=== PATIENT | male | born 1990 | race Caucasian/White ===

== ENCOUNTER 2020-11-08 10:37 | Emergency (ER) | payer SELFPAY ==
[2020-11-08 11:04] VITALS: BP 129/73; PULSE 94; RESP 16; TEMP 37.7; O2SAT 98; BMI 23.6
== END 2020-11-08 18:40 | disposition left against medical advice (07) ==
PROVIDERS: Emergency Provider Emergency Medicine
DX: R10.9 Unspecified abdominal pain (principal); R51.9 Headache, unspecified
CPT/HCPCS: 99282; 99283

== ENCOUNTER 2020-11-08 15:20 | Outpatient (REF) | payer SELFPAY | END 2020-11-08 15:21 | disposition home or self-care (01) | LOC: HO.LAB 15:20 | PROVIDERS: Visit Provider Internal Medicine | DX: Z20.828 Contact with and (suspected) exposure to other viral communicable diseases (principal) | CPT/HCPCS: C9803; U0003 ==

== ENCOUNTER 2021-07-19 12:34 | Emergency (ER) | payer SELFPAY ==
[2021-07-19 12:52] VITALS: BP 119/68; PULSE 90; RESP 18; TEMP 36.6; O2SAT 98; BMI 25.1
--- NOTE | 2021-07-19 13:06 | ED_ITS ---
HPI - Skin/Abscess/Foreign Bdy General Chief complaint: Skin/Abscess/Foreign Body Stated complaint: rash Time Seen by Provider: 07/19/21 13:05 Source: patient and family Mode of arrival: ambulatory Limitations: no limitations History of Present Illness complaint: rash Onset (ago): day(s) (For the past few days) Location: L hand and R hand Severity: mild Quality: constant and pruritic Pain Consistency: constant Relieving factors: none Exacerbating factors: none Context: other (They are currently at a detention and they believe they may have scabies) Associated symptoms: denies other symptoms Treatments prior to arrival: none Related Data Previous Rx's Medication Instructions Recorded permethrin 5 % topical cream 1 appl TOPICAL Q14D #60 g 07/19/21 Allergies Allergy/AdvReac Type Severity Reaction Status Date / Time No Known Allergies Allergy Verified 11/08/20 11:07 Review of Systems Review of Systems: Constitutional : No Fever, No Chills , no body aches, no recent illness Head/Face: No facial swelling, No facial redness ENT/Mouth : No oral/throat swelling, No Hoarseness, No Swallowing Difficulty Eyes: No Eye Pain, No Swelling, No Redness Cardiovascular : No Chest Pain, No SOB, No palpitations Respiratory : No Cough, No Sputum, No Wheezing, No Smoke Exposure, No Dyspnea Gastrointestinal : No Nausea, No Vomiting, No Diarrhea, No abdominal Pain Genitourinary : No Dysuria, No Urinary Frequency, No Hematuria Musculoskeletal : No joint pain, No Myalgias, No Joint Swelling Skin : No Skin Lesions, positive rash Neuro : No Weakness, No Numbness, No Headache, No dizziness, No tingling Psych : No Anxiety/Panic, No Depression Heme/Lymph: No Bruising, No Lymphadenopathy Endocrine : No Polyuria, No Polydipsia Denies changes in lotions or detergents. Denies new medications or any changes in medications. Denies drainage from rash. Denies any recent sick contacts or recent travel. Yes all other systems are reviewed and are negative COUNT INCLUDES [facility] Past Medical History Medical History (Updated 07/19/21 @ 13:10 by VENKAT Montero) No known health problems Social History Social History Advance Directives: No Advance Directives Information Provided: No Physical Exam Vital Signs: Vital Signs: Last Vital Signs Temp 97.9 F 07/19/21 12:52 Pulse 90 07/19/21 12:52 Resp 18 07/19/21 12:52 BP 119/68 07/19/21 12:52 Pulse Ox 98 07/19/21 12:52 Body Mass Index 25.1 vital signs have been reviewed as normal and appeared to be correct. Blood pressure normal. Heart rate normal. Respiration rate normal. Temperature normal. Oxygen saturation normal. Appearance: Alert. Oriented X3. No acute distress. Head: Normal external exam. Normocephalic. Atraumatic. Eyes: PERRLA. EOMI. Conjunctiva and sclera normal. Eyelids normal. ENT: Pharynx normal. Uvula midline. Moist mucous membranes. Neck: Normal inspection. Neck supple. FROM. No adenopathy. No meningeal signs. CVS: Normal heart rate and rhythm. Respiratory: No respiratory distress. Painless inspiration. Back: Full range of motion noted. No rashes/lesion/induration/fluctuance or signs of infection noted. Skin: Skin warm and dry. Normal skin color. Normal skin turgor. To hands patient noted to have pruritic macular papular lesion consistent with scabies. No additional rashes/lesions/lacerations noted. Extremities: Extremities exhibit normal range of motion. Extremities nontender. Neuro: Oriented X 3. No motor deficit. No sensory deficit. Reflexes normal. Normal steady gait. No focal neuro deficits noted. Vascular: + radial pulses/+ 2 distal pedal pulses/+2 dorsalis pedis b/l. Normal cap refill. No cyanosis noted to upper extremity nails and lower extremity toes nails. Course Course Course Narrative: 31-year-old male presenting to the ED with his and 2 kids complaints of rash that started a few days ago that is pruritic in nature they are currently at detention and they believe they may have scabies. On exam the entire family has pure attic macular papular lesions with burrows consistent with scabies. No signs of infection. Will DC home with treatment for scabies and instructions to return if any new or worsening symptoms to follow up with primary care provider. Patient and family at bedside understands agrees this plan. MDM - Skin/Abscess/Foreign Bdy Medical Records Attestation: I reviewed the patient's medical records. Discharge Plan Discharge Clinical Impression: Scabies Patient Disposition: Home, Self-Care Instructions: Scabies (ED) Prescriptions: New permethrin 5 % cream 1 appl topical Q14D Qty: 60 RF: 2 Referrals: ED Physician,Generic [Emergency Provider] - 2 days (your pcp) Print Language: Canadian
== END 2021-07-19 14:06 | disposition home or self-care (01) ==
PROVIDERS: Emergency Provider Emergency Medicine
DX: B86 Scabies (principal)
CPT/HCPCS: 99283

== ENCOUNTER 2022-12-05 09:25 | Emergency (ER) | payer OTHER, SELFPAY ==
[2022-12-05 09:33] VITALS: BP 138/67; PULSE 100; RESP 16; TEMP 36.6; O2SAT 96; BMI 25.1
--- NOTE | 2022-12-05 10:20 | ED.EYEPROB ---
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 Reports pain worse to right eye. Admits was wearing safety glasses however does not wear face shield at all times. reports mild foreign body sensation to right eye w/mild blurry vision. Admits to bilateral tearing. denies vision loss, fever, chills, nausea / vomiting, headache. Denies wearing glasses or contacts MD chief complaint: eye pain, eye redness and vision change Onset (ago): day(s) Related Data Previous Rx's Medication Instructions Recorded permethrin 5 % topical cream 1 appl topical Q14D scabies 2 07/19/21 doses #60 grams erythromycin 5 mg/gram (0.5 %) eye 0.5 inch ophthalmic (eye) TID 7 12/05/22 ointment days #3.5 grams Allergies Allergy/AdvReac Type Severity Reaction Status Date / Time No Known Allergies Allergy Verified 11/08/20 11:07 Review of Systems Review of Systems: Constitutional: No Fever, No Chills, No Fatigue, No Malaise ENT/Mouth: No Ear Pain, No Nasal Congestion, No Sinus Pain, No Hoarseness, No sore throat, No Rhinorrhea, No Swallowing Difficulty Eyes: + Eye Pain, + Swelling, + Redness, + Foreign Body sensation, + Discharge, + Vision Changes Cardiovascular: No Chest Pain, No SOB Respiratory: No Cough, No Sputum, No Dyspnea Gastrointestinal: No Nausea, No Vomiting, No Diarrhea, No Constipation, No Abdominal pain Musculoskeletal: No joint pain, No Myalgias, No Joint Swelling Skin: No Skin Lesions, No rash Neuro: No Weakness, No Loss of Consciousness, No Dizziness, No Headache Yes all other systems are reviewed and are negative Constitutional: Constitutional: Reports as per HPI Eyes: Eyes: Reports photophobia (bilterally) [facility] Past Medical History Attestation statement: The following information was validated with the patient. Medical History No known health problems Social History Social History Advance Directives: No Advance Directives Information Provided: No Physical Exam Vital Signs: Vital Signs: Last Vital Signs Temp 98 F 12/05/22 09:33 Pulse 100 12/05/22 09:33 Resp 16 12/05/22 09:33 BP 138/67 12/05/22 09:33 Pulse Ox 96 12/05/22 09:33 O2 Del Method 12/05/22 09:33 BMI result Body Mass Index 25.1 Const: General: cooperative, healthy appearing and no acute distress Orientation/consciousness: patient oriented x3 Limitations: no limitations HEENT: Head: Yes normal to inspection and Yes atraumatic Ears: hearing grossly normal bilaterally General nose exam: Normal external nose present Face and sinus: Yes normal facial exam Eyes: General: appearance normal, both eyes and all related structures Alignment and Position: alignment normal Periorbital: periorbital findings abnormal bilateral (mild bilateral upper and lower eyelid erythema and puffiness) no crepitus Conjunctivae: conjunctival abnormal bilateral conjunctival injection diffuse (bilaterally) and discharge (tearing) Corneas: fluorescein used (without uptake) Pupils: Equal, round and reactive pupils present EOM: EOMs intact bilaterally Direct Ophthalmoscopy: normal light reflex and photophobia (bilterally) Neck: Neck: Yes normal visual inspection and Yes no meningeal signs Resp: Effort & Inspection: normal respiratory effort and no respiratory distress Cardio: Rate: regular rate Skin: Rashes: no rashes Wounds: no wounds Neuro: General: patient oriented x3, tone normal and no meningeal signs Cranial nerves: Yes Equal, round and reactive pupils present Gait exam (Neuro): Normal gait present Extrem: General: Yes normal to inspection Medical Decision Making Medical Decision Making MDM Narrative: 32-year-old male with no significant past medical history presenting to the ED complaining of erythematous, irritated, painful bilateral eyes 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 On exam vital signs stable, NAD, nontoxic appearing, physical exam as above with bilateral eye/periorbital erythema & puffiness with conjunctival injection. No fluorescein uptake, no ulceration, no evidence of globe rupture. Low suspicion for orbital / periorbital cellulitis. Visual acuity 20/15 bilaterally. Concern for photo keratitis. Plan: [facility], fluorescein staining, Optho f/u Differential Diagnosis Differential Diagnoses: The differential diagnosis associated with the presentation includes as above Consult Healthcare Provider Dr. 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 Please follow-up with Ophthalmology. If symptoms persist or worsen, he developed vision loss or change, fever please return to the emergency department Prescriptions: New erythromycin 5 mg/gram (0.5 %) ointment 0.5 inch ophthalmic (eye) TID 7 Days Qty: 3.5 0RF No Action permethrin 5 % cream 1 appl topical Q14D Qty: 60 2RF Rx Instructions: apply second treatment 14 days after first treatment if live lice remain Referrals: Eduardo García [Physician] - 2 days Stand Alone Forms: Work/School Release
[2022-12-05] MEDS: Fluorescein Sodium STRIP 1 STRIP EYE-BOTH (10:54)
[2022-12-05] MEDS: Tetracaine HCl/PF 0.5% Oph Sol 4 ML DROPS 3 DROP EYE-BOTH (10:54)
== END 2022-12-05 10:57 | disposition home or self-care (01) ==
PROVIDERS: Emergency Provider Emergency Medicine
DX: Z04.2 Encounter for examination and observation following work accident (principal); H16.133 Photokeratitis, bilateral
CPT/HCPCS: 99282; 99283

== ENCOUNTER → 2022-12-06 12:46 | Outpatient (BNVA) | payer OTHER, SELFPAY | PROVIDERS: Visit Provider Physician Assistant | DX: H16.133 Photokeratitis, bilateral (principal) | CPT/HCPCS: 99203 ==